=== PATIENT | female | born 1980 | race Caucasian/White ===

== ENCOUNTER 2021-01-17 20:38 | Emergency (ER) | payer OTHER ==
[2021-01-17] MEDS ORDERED: Ketorolac Tromethamine 30 MG/ML VIAL ONE (21:15)
[2021-01-17] MEDS ORDERED: Sodium Chloride 0.9% 1,000 ML ONE (21:15)
[2021-01-17] MEDS ORDERED: Prochlorperazine 10 MG/2 ML VIAL ONE (21:15)
[2021-01-17] MEDS ORDERED: diphenhydrAMINE 50 MG/ML VIAL ONE (21:15)
== END 2021-01-17 23:00 | disposition home or self-care (01) ==
LOC: NAV ERS 20:38
DX: G43.909 Migraine, unspecified, not intractable, without status migrainosus (principal); I10 Essential (primary) hypertension; Z79.899 Other long term (current) drug therapy
CPT/HCPCS: 96365; 96375; J0780; J1200; J1885; J7050